=== PATIENT | female | born 1995 | race African-American/Black ===

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

== ENCOUNTER 2017-01-06 14:28 | Inpatient (IN) | payer MEDICAID ==
[~2017-01-06] VITALS: Ht 165.1 cm; Wt 120.0 kg
[~2017-01-06 14:28] MED LIST changes: -ACETAMINOPHEN 1000 MG/100 ML VIAL IV ONE; -BUPIVACAINE/EPINEPHRINE 0.5% PF 30 ML VIAL ONE; -LACTATED RINGER'S 1000 ML INJ 1,000 ML ONE; -LIDOCAINE 1%/EPINEPHrine 1:100,000 SOLN 20 ML VIAL ONE; -MIDAZOLAM HCL 2 MG/2 ML VIAL ONE; -ONDANSETRON HCL 4 MG/2 ML VIAL IV PUSH ONE; -PROPOFOL 200 MG/20 ML AMP IV ONE; -ceFAZolin INJ 1,000 MG VIAL ONE
[2017-01-06 14:32] VITALS: BP 136/79; PULSE 100; RESP 13; TEMP 99.3; O2SAT 100
--- NOTE | 2017-01-06 14:50 | PD ---
Physical Exam Time Seen by Provider: 14:48 Narrative 21-year-old female complaining of sore throat and swollen tonsils for one week. Reports fever but does not have a MAXIMUM TEMPERATURE report. Denies nausea, vomiting. Patient seen in triage. VS reviewed. Awaiting bed placement. Data Data Last Documented VS Vital Signs Date Time Temp Pulse Resp B/P (MAP) Pulse Ox O2 Delivery O2 Flow Rate FiO2 01/06/17 14:32 99.3 100 13 136/79 (98) 100 MDM Supervised Visit with LORETTA: Kyra Munguia Jan 06, 2017 14:50
[2017-01-06] MEDS ORDERED: AMPICILLIN-SULBACTAM INJ 3 GM in SODIUM CHLORIDE 0.9% INJ 100 ML IV ONE (15:00)
[2017-01-06] MEDS ORDERED: DEXAMETHASONE SOD PHOS 20 MG/5 ML VIAL IV PUSH ONE (15:00)
[2017-01-06] MEDS ORDERED: SODIUM CHLORIDE 0.9% FLUSH 10 ML FLUSH IV FLUSH PRN ×2 (15:00→17:30)
--- NOTE | 2017-01-06 15:03 | PD ---
HPI Chief Complaint: ENT Complaint Time Seen by Provider: 14:59 Travel History International Travel<30 days: No Contact w/Intl Traveler<30days: No Traveled to known affect area: No History of Present Illness HPI Patient comes in complaining of worsening tonsil swelling and sore throat. Patient states she saw her primary care doctor 8 days ago and was started on Augmentin which she has been taking as prescribed. Patient states symptoms are not getting any better, but are getting worse. Pain is worse with swallowing. Patient reports when she awoke this morning she had a muffled voice and increased difficulty swallowing. Patient denies any airway compromise at this time. Patient denies any chest pain, shortness of breath, nausea, vomiting, abdominal pain, or . Patient patient reports something similar in the past that resolved after seeing 2 shots of unknown medications. Patient states that they wanted drain it previously but she refused at that time. [facility] Past Medical History Medical History: Denies Significant Hx Diabetes: Yes Social History Alcohol Use: No Tobacco Use: No Substance Use: No Allergies-Medications (Allergen,Severity, Reaction): Coded Allergies: No Known Allergies (Unverified , 07/12/16) Reported Meds & Prescriptions Reported Meds & Active Scripts Active Reported Amoxicillin-Clavulanate 500-125 mg Tab 500 Mg PO BID Review of Systems Except as stated in HPI: all other systems reviewed are Neg Physical Exam Narrative GENERAL: Well-developed, overly nourished, in no acute distress, and non-ill appearing. SKIN: Focused skin assessment warm and dry. HEAD: Atraumatic. Normocephalic. EYES: Pupils equal and round. EOMI. No scleral icterus. No injection or drainage. ENT: No nasal bleeding or discharge. Mucous membranes pink and moist. Left peritonsillar abscess noted. Uvula is deviated to the right. Patient is speaking with a muffled voice, but is able to swallow her own saliva currently. Speaking in full sentences. NECK: Trachea midline. Supple. No nuclear rigidity. RESPIRATORY: No accessory muscle use. No respiratory distress. MUSCULOSKELETAL: No obvious deformities. No clubbing. No cyanosis. No edema. Full range of motion. NEUROLOGICAL: Awake and alert. No obvious cranial nerve deficits. Motor grossly within normal limits. Normal speech. PSYCHIATRIC: Appropriate mood and affect; insight and judgment normal. Data Data Last Documented VS Vital Signs Date Time Temp Pulse Resp B/P (MAP) Pulse Ox O2 Delivery O2 Flow Rate FiO2 01/06/17 15:13 101 24 140/83 (102) 100 Room Air 01/06/17 14:32 99.3 Orders Orders Basic Metabolic Panel (Bmp) (01/06/17 14:54) Complete Blood Count With Diff (01/06/17 14:54) Iv Access Insert/Monitor (01/06/17 14:54) Ecg Monitoring (01/06/17 14:54) Oximetry (01/06/17 14:54) Ampicillin-Sulbactam Inj (Unasyn Inj) (01/06/17 15:00) Sodium Chloride 0.9% Flush (Ns Flush) (01/06/17 15:00) Ct Soft Tiss Neck W Iv Cont (01/06/17 ) Dexamethasone Inj (Decadron Inj) (01/06/17 15:00) Sodium Chlor 0.9% 1000 Ml Inj (Ns 1000 M (01/06/17 15:15) MDM Medical Decision Making Medical Screen Exam Complete: Yes Emergency Medical Condition: Yes Differential Diagnosis Peritonsillar abscess, retropharyngeal abscess, pharyngitis, failed outpatient therapy, electrolyte abnormality, other Narrative Course Patient was seen and exam. Initial laboratory and radiological studies were ordered. IV Unasyn, Decadron, and normal saline were ordered. Patient awaiting medical bed for further treatment will be transferred once one is available. Patient was signed out to Nimo Maurer PA-C. Please see her documentation for final diagnosis and disposition. Angelo Rinaldi Jan 06, 2017 15:03
[2017-01-06] MEDS ORDERED: AMOX500T2 PO (15:12)
[2017-01-06 15:13] VITALS: BP 140/83; PULSE 101; RESP 24; O2SAT 100
[2017-01-06] MEDS ORDERED: SODIUM CHLOR 0.9% 1000 ML INJ 1,000 ML IV ONE (15:15)
--- NOTE | 2017-01-06 15:24 | PD ---
Physical Exam Date Seen by Provider: Jan 06, 2017 Time Seen by Provider: 15:21 Data Data Last Documented VS Vital Signs Date Time Temp Pulse Resp B/P (MAP) Pulse Ox O2 Delivery O2 Flow Rate FiO2 01/06/17 15:13 101 24 140/83 (102) 100 Room Air 01/06/17 14:32 99.3 Orders Orders Basic Metabolic Panel (Bmp) (01/06/17 14:54) Complete Blood Count With Diff (01/06/17 14:54) Iv Access Insert/Monitor (01/06/17 14:54) Ecg Monitoring (01/06/17 14:54) Oximetry (01/06/17 14:54) Ampicillin-Sulbactam Inj (Unasyn Inj) (01/06/17 15:00) Sodium Chloride 0.9% Flush (Ns Flush) (01/06/17 15:00) Ct Soft Tiss Neck W Iv Cont (01/06/17 ) Dexamethasone Inj (Decadron Inj) (01/06/17 15:00) Sodium Chlor 0.9% 1000 Ml Inj (Ns 1000 M (01/06/17 15:15) Iohexol 350 Inj (Omnipaque 350 Inj) (01/06/17 15:48) Consult Ent (01/06/17 ) Admit Order (Ed Use Only) (01/06/17 16:33) Labs Laboratory Tests Test 01/06/17 15:21 White Blood Count 10.1 TH/MM3 Red Blood Count 5.55 MIL/MM3 Hemoglobin 12.3 GM/DL Hematocrit 39.6 % Mean Corpuscular Volume 71.5 FL Mean Corpuscular Hemoglobin 22.1 PG Mean Corpuscular Hemoglobin Concent 31.0 % Red Cell Distribution Width 15.3 % Platelet Count 316 TH/MM3 Mean Platelet Volume 8.0 FL Neutrophils (%) (Auto) 70.6 % Lymphocytes (%) (Auto) 20.4 % Monocytes (%) (Auto) 6.9 % Eosinophils (%) (Auto) 1.5 % Basophils (%) (Auto) 0.6 % Neutrophils # (Auto) 7.1 TH/MM3 Lymphocytes # (Auto) 2.0 TH/MM3 Monocytes # (Auto) 0.7 TH/MM3 Eosinophils # (Auto) 0.2 TH/MM3 Basophils # (Auto) 0.1 TH/MM3 CBC Comment DIFF FINAL Differential Comment Blood Urea Nitrogen 5 MG/DL Creatinine 0.73 MG/DL Random Glucose 81 MG/DL Calcium Level 8.9 MG/DL Sodium Level 138 MEQ/L Potassium Level 3.8 MEQ/L Chloride Level 105 MEQ/L Carbon Dioxide Level 28.5 MEQ/L Anion Gap 5 MEQ/L Estimat Glomerular Filtration Rate 124 ML/MIN [facility] Supervised Visit with LORETTA: No Differential Diagnosis Pharyngitis versus strep pharyngitis versus peritonsillar abscess versus deep neck space infection versus other Narrative Course 21-year-old female presents to the ED for evaluation of throat pain. She was initially seen by Earl Rinaldi PA-C. Please see his note for these details. She was transferred to the medical pod with lab work and CT pending. Patient endorses a day history of sore throat. She saw her primary care and was prescribed clindamycin endorses compliance. She states that her symptoms have been getting worse, including difficulty swallowing. She states that today she woke up with a muffled voice which caused her to seek treatment. She endorses a similar episode in the past, states that she "had a few injections." The patient states that she last had something to drink last night. GENERAL: Well-nourished, well-developed black female in no acute distress. SKIN: Warm and dry. HEAD: Normocephalic. Atraumatic. EYES: No scleral icterus. No injection or drainage. PERRLA. EOMI. ENT: Pearly lopez tympanic membranes bilaterally. Nasal mucosa is moist. Oropharynx without erythematous, edematous, visible exudates. Huge mass in the left tonsillar fossa. Uvula is deviated to the right. Airway patent. NECK: Supple, trachea midline. No JVD or lymphadenopathy. CARDIOVASCULAR: Regular rate and rhythm without murmurs, gallops, or rubs. RESPIRATORY: Breath sounds clear and equal bilaterally. No accessory muscle use. GASTROINTESTINAL: Abdomen soft, non-tender, nondistended. + Bowel sounds MUSCULOSKELETAL: No cyanosis, or edema. BACK: Nontender without obvious deformity. No CVA tenderness. Afebrile on presentation. Labwork reveals no leukocytosis. Patient was administered IV Unasyn, steroids and [address] reveals extensive soft tissue swelling to the level of glossotonsillar sulcus on the left as well as a 2.5 x 1.8 cm left tonsillar abscess per radiology read. I discussed the results of the CT and workup with the patient is agreeable to admission. I spoke with Dr. Rodas who requested the patient be admitted to medicine. He' ll evaluate tomorrow for potential surgical intervention. I spoke with Dr. Mcadams who agrees to accept the patient to the medicine service. Please see medicine and ENT notes for disposition. Nimo Maurer Jan 06, 2017 15:24
[2017-01-06 15:36] LABS: AUTOMATED NEUTROPHIL # 7.1 TH/MM3 (1.8-7.7); BASOPHIL # 0.1 TH/MM3 (0-0.2); BASOPHIL % 0.6 % (0.0-2.0); EOSINOPHIL # 0.2 TH/MM3 (0-0.4); EOSINOPHIL % 1.5 % (0.0-4.0); HEMATOCRIT 39.6 % (35.0-46.0); HEMO FLAGS DIFF FINAL; LYMPH % 20.4 % (9.0-44.0); MEAN CELL VOLUME 71.5 FL (80.0-100.0); MEAN CORPUSCULAR HEMOGLOBIN 22.1 PG (27.0-34.0); MONO % 6.9 % (0.0-8.0); NEUT % 70.6 % (16.0-70.0); PLATELET COUNT 316 TH/MM3 (150-450); RED BLOOD COUNT 5.55 MIL/MM3 (4.00-5.30); RED CELL DISTRIBUTION WIDTH 15.3 % (11.6-17.2); WHITE BLOOD COUNT 10.1 TH/MM3 (4.0-11.0)
[2017-01-06] MEDS ORDERED: IOHEXOL 350 MG/ML 10 ML VIAL (for RAD DIAG) IV PUSH ONE (15:48)
[2017-01-06 15:58] LABS: BICARBONATE 28.5 MEQ/L (21.0-32.0); POTASSIUM 3.8 MEQ/L (3.5-5.1)
--- NOTE | 2017-01-06 16:01 | RADRPT ---
EXAM DATE/TIME: 01/06/2017 15:43 [facility] COMPARISON: No previous studies available for comparison. INDICATIONS : Sore throat for one week. IV CONTRAST: 95 cc Omnipaque 350 (iohexol) IV RADIATION DOSE: 30.75 CTDIvol (mGy) MEDICAL HISTORY : Diabetes mellitus type 2. SURGICAL HISTORY : None. ENCOUNTER: Initial ACUITY: 1 day PAIN SCALE: 4/10 LOCATION: Bilateral neck TECHNIQUE: Volumetric scanning of the neck was performed. Using automated exposure control and adjustment of th e mA and/or kV according to patient size, radiation dose was kept as low as reasonably achievable to obtain optimal diagnostic quality images. DICOM format image data is available electronically for r eview and comparison. FINDINGS: The examination demonstrates extensive soft tissue swelling involving the tonsillar pillar on the lef t and extending down into the left glossotonsillar sulcus. There is central low attenuation measuring 2.5 x 1.8 cm. This would be concerning for a tonsillar abscess. The soft tissues of the nasopharynx are intact. The soft tissues of the larynx are intact. There some scattered jugular and posterior cervical lymph nodes. No necrotic or enhancing nodes are i dentified. The parotid and submandibular glands are intact. The thyroid is normal in appearance. The limited portions of brain parenchyma visualized are unremarkable. The bony structures are intact. CONCLUSION: 1. Extensive soft tissue swelling involving the tonsillar pillar along the left side of the oropharyn x with extension down into the glossotonsillar sulcus on the left. There is central low attenuation m easuring at least 2.5 x 1.8 cm. The findings are concerning for a sizable tonsillar abscess on the le ft. Meir Mills MD on January 06, 2017 at 15:56 Board Certified Radiologist. This report was verified electronically.
[2017-01-06 17:30] VITALS: BP 135/70; PULSE 90; RESP 16; O2SAT 100
[2017-01-06] MEDS ORDERED: MORPHINE SULFATE 4 MG/ML INJ IV PRN ×2 (17:30)
[2017-01-06] MEDS ORDERED: ONDANSETRON HCL 4 MG/2 ML VIAL IVP PRN (17:30)
[2017-01-06] MEDS ORDERED: ACETAMINOPHEN/HYDROcodone 325 MG/5 MG TAB PO PRN (17:30)
[2017-01-06] MEDS ORDERED: ACETAMINOPHEN 325 MG TAB PO PRN (17:30)
[2017-01-06] MEDS ORDERED: ACETAMINOPHEN/HYDROcodone 325 MG/7.5 MG TAB PO PRN (17:30)
[2017-01-06] MEDS ORDERED: NALOXONE HCL 0.4 MG/ML AMP IV PUSH PRN (17:30)
--- NOTE | 2017-01-06 17:39 | HHI.HP ---
[facility] Service [facility] Primary Care Physician No Primary Care Physician Admission Diagnosis left peritonsillar abscess Diagnoses: Chief Complaint: Sore throat, difficulty swallowing, fever Travel History International Travel<30 Days: No Contact w/Intl Traveler <30 Da: No Traveled to Known Affected Are: No History of Present Illness 21 years old female with history of tonsillitis came today with worsening tonsil swelling, sore throat, difficulty swallowing, subjective fever, positive exudate which was getting worse since Monday. Patient reports some cough, muffled voice. Airway still needs and no difficulty breathing, no chest pain short of breath, no nausea vomiting abdominal pain diarrhea constipation. Patient had that before and she was given 2 shots of unknown medication. In ED patient had a CT of the neck which showed peritonsillar extensive abscess, ENT consulted he will be seeing the patient for possible I&D Review of Systems All systems reviewed and was positive for what is mentioned in history of present illness otherwise negative Past Family Social History Past Medical History patient denied any other medical problem Past Surgical History no previous surgery Allergies: Coded Allergies: No Known Allergies (Unverified , 07/12/16) Family History Review with the patient,not aware of significant medical history runs in his family Social History Denied tobacco alcohol or illicit drug abuse Physical Exam Vital Signs Vital Signs Date Time Temp Pulse Resp B/P (MAP) Pulse Ox O2 Delivery O2 Flow Rate FiO2 01/06/17 15:13 101 24 140/83 (102) 100 Room Air 01/06/17 14:32 99.3 100 13 136/79 (98) 100 Physical Exam - GENERAL: This is a well-nourished, well-developed patient, in no apparent distress. SKIN: No rashes, warm and dry HEAD: Atraumatic. Normocephalic. EYES: Pupils equal round and reactive. Extraocular motions intact. No scleral icterus. ENT: Nose without bleeding, or drainage, Airway patent. Positive exudate seen on the right tonsil, positive tender lymph node submandibular more on the left NECK: Trachea midline. Supple CARDIOVASCULAR: Regular rate and rhythm without murmurs, gallops, or rubs. RESPIRATORY: Fair air entry bilaterally. No wheezes, rales, or rhonchi. GASTROINTESTINAL: Abdomen soft, non-tender, nondistended. Positive bowel sounds MUSCULOSKELETAL: Extremities without clubbing, cyanosis, or edema. Pedal pulses appreciated NEUROLOGICAL: Awake and alert. Moves all extremity. Normal speech.no focal neurological deficit Laboratory Laboratory Tests Test 01/06/17 15:21 White Blood Count 10.1 Red Blood Count 5.55 Hemoglobin 12.3 Hematocrit 39.6 Mean Corpuscular Volume 71.5 Mean Corpuscular Hemoglobin 22.1 Mean Corpuscular Hemoglobin Concent 31.0 Red Cell Distribution Width 15.3 Platelet Count 316 Mean Platelet Volume 8.0 Neutrophils (%) (Auto) 70.6 Lymphocytes (%) (Auto) 20.4 Monocytes (%) (Auto) 6.9 Eosinophils (%) (Auto) 1.5 Basophils (%) (Auto) 0.6 Neutrophils # (Auto) 7.1 Lymphocytes # (Auto) 2.0 Monocytes # (Auto) 0.7 Eosinophils # (Auto) 0.2 Basophils # (Auto) 0.1 CBC Comment DIFF FINAL Differential Comment Blood Urea Nitrogen 5 Creatinine 0.73 Random Glucose 81 Calcium Level 8.9 Sodium Level 138 Potassium Level 3.8 Chloride Level 105 Carbon Dioxide Level 28.5 Anion Gap 5 Estimat Glomerular Filtration Rate 124 Result Diagram: 01/06/17 1521 01/06/17 1521 Imaging Last Impressions Neck CT 01/06/17 0000 Signed Impressions: Service Date/Time: Friday, January 06, 2017 15:43 - CONCLUSION: 1. Extensive soft tissue swelling involving the tonsillar pillar along the left side of the oropharynx with extension down into the glossotonsillar sulcus on the left. There is central low attenuation measuring at least 2.5 x 1.8 cm. The findings are concerning for a sizable tonsillar abscess on the left. Meir Mills MD Caprini VTE Risk Assessment Caprini VTE Risk Assessment: No/Low Risk (score <= 1) Caprini Risk Assessment Model Point Value = 1 Point Value = 2 Point Value = 3 Point Value = 5 Age 41-60 Minor surgery BMI > 25 kg/m2 Swollen legs Varicose veins or History of unexplained or recurrent spontaneous Oral contraceptives or hormone replacement Sepsis (< 1 month) Serious lung disease, including pneumonia (< 1 month) Abnormal pulmonary function Acute myocardial infarction Congestive heart failure (< 1 month) History of inflammatory bowel disease Medical patient at bed rest Age 61-74 Arthroscopic surgery Major open surgery (> 45 min) Laparoscopic surgery (> 45 min) Malignancy Confined to bed (> 72 hours) Immobilizing plaster cast Central venous access Age >= 75 History of VTE Family history of VTE Factor V Leiden Prothrombin [id number] Lupus anticoagulant Anticardiolipin antibodies Elevated serum homocysteine Heparin-induced thrombocytopenia Other congenital or acquired thrombophilia Stroke (< 1 month) Elective arthroplasty Hip, pelvis, or leg fracture Acute spinal cord injury (< 1 month) Prophylaxis Regimen Total Risk Factor Score Risk Level Prophylaxis Regimen 0-1 Low Early ambulation 2 Moderate Order ONE of the following: *Sequential Compression Device (SCD) *Heparin 5000 units SQ BID 3-4 Higher Order ONE of the following medications: *Heparin 5000 units SQ TID *Enoxaparin/Lovenox 40 mg SQ daily (WT < 150 kg, CrCl > 30 mL/min) *Enoxaparin/Lovenox 30 mg SQ daily (WT < 150 kg, CrCl > 10-29 mL/min) *Enoxaparin/Lovenox 30 mg SQ BID (WT < 150 kg, CrCl > 30 mL/min) AND/OR *Sequential Compression Device (SCD) 5 or more Highest Order ONE of the following medications: *Heparin 5000 units SQ TID (Preferred with Epidurals) *Enoxaparin/Lovenox 40 mg SQ daily (WT < 150 kg, CrCl > 30 mL/min) *Enoxaparin/Lovenox 30 mg SQ daily (WT < 150 kg, CrCl > 10-29 mL/min) *Enoxaparin/Lovenox 30 mg SQ BID (WT < 150 kg, CrCl > 30 mL/min) AND *Sequential Compression Device (SCD) Assessment and Plan Assessment and Plan 21 years old female came with Peritonsillar extensive abscess Increased neutrophilia without leukocytosis Hyperchromic microcytosis with normal hemoglobin? Underlying thalassemia> follow as an outpatient Plan: Start Unasyn iv Dexamethasone 90 Monitor airway patency Consult ENT Ambulate for DVT prophylaxis Discussed Condition With patient and ED physician Physician Certification 2 Midnight Certification Type: Admission for Inpatient Services Order for Inpatient Services The services are ordered in accordance with Medicare regulations or non- Medicare payer requirements, as applicable. In the case of services not specified as inpatient-only, they are appropriately provided as inpatient services in accordance with the 2-midnight benchmark. Estimated LOS (days): 2 days is the estimated time the patient will need to remain in the hospital, assuming treatment plan goals are met and no additional complications. Post-Hospital Plan: Home Rebecca Mcadams MD Jan 06, 2017 17:39
--- NOTE | 2017-01-06 18:02 | PD ---
Data Data Last Documented VS Vital Signs Date Time Temp Pulse Resp B/P (MAP) Pulse Ox O2 Delivery O2 Flow Rate FiO2 01/06/17 15:13 101 24 140/83 (102) 100 Room Air 01/06/17 14:32 99.3 Orders Orders Basic Metabolic Panel (Bmp) (01/06/17 14:54) Complete Blood Count With Diff (01/06/17 14:54) Iv Access Insert/Monitor (01/06/17 14:54) Ecg Monitoring (01/06/17 14:54) Oximetry (01/06/17 14:54) Ampicillin-Sulbactam Inj (Unasyn Inj) (01/06/17 15:00) Sodium Chloride 0.9% Flush (Ns Flush) (01/06/17 15:00) Ct Soft Tiss Neck W Iv Cont (01/06/17 ) Dexamethasone Inj (Decadron Inj) (01/06/17 15:00) Sodium Chlor 0.9% 1000 Ml Inj (Ns 1000 M (01/06/17 15:15) Iohexol 350 Inj (Omnipaque 350 Inj) (01/06/17 15:48) Consult Ent (01/06/17 ) Admit Order (Ed Use Only) (01/06/17 16:33) Labs Laboratory Tests Test 01/06/17 15:21 White Blood Count 10.1 TH/MM3 Red Blood Count 5.55 MIL/MM3 Hemoglobin 12.3 GM/DL Hematocrit 39.6 % Mean Corpuscular Volume 71.5 FL Mean Corpuscular Hemoglobin 22.1 PG Mean Corpuscular Hemoglobin Concent 31.0 % Red Cell Distribution Width 15.3 % Platelet Count 316 TH/MM3 Mean Platelet Volume 8.0 FL Neutrophils (%) (Auto) 70.6 % Lymphocytes (%) (Auto) 20.4 % Monocytes (%) (Auto) 6.9 % Eosinophils (%) (Auto) 1.5 % Basophils (%) (Auto) 0.6 % Neutrophils # (Auto) 7.1 TH/MM3 Lymphocytes # (Auto) 2.0 TH/MM3 Monocytes # (Auto) 0.7 TH/MM3 Eosinophils # (Auto) 0.2 TH/MM3 Basophils # (Auto) 0.1 TH/MM3 CBC Comment DIFF FINAL Differential Comment Blood Urea Nitrogen 5 MG/DL Creatinine 0.73 MG/DL Random Glucose 81 MG/DL Calcium Level 8.9 MG/DL Sodium Level 138 MEQ/L Potassium Level 3.8 MEQ/L Chloride Level 105 MEQ/L Carbon Dioxide Level 28.5 MEQ/L Anion Gap 5 MEQ/L Estimat Glomerular Filtration Rate 124 ML/MIN MDM Supervised Visit with LORETTA: Yes Narrative Course The history, exam, and medical decision-making in the associated midlevel provider note were completed with my assistance. I reviewed and agree with the findings presented. I attest that I had a [id number] encounter with the patient on the same day, and personally performed and documented my assessment and findings in the medical record. *My assessment and Findings: This is a 21-year-old female who presents to the emergency department with sore throat. On physical exam she has evidence of a left-sided peritonsillar abscess. CT confirms this. Patient will be admitted on IV antibiotics and steroids and ENT will be consulted for possible incision and drainage. Lenora Galeas MD Jan 06, 2017 18:02
[2017-01-06 20:00] VITALS: BP 131/72; PULSE 83; RESP 22; TEMP 98.7; O2SAT 96
[2017-01-06] MEDS: SODIUM CHLOR 0.9% 1000 ML INJ 1,000 ML IV SCH (20:17)
[2017-01-06] MEDS: AMPICILLIN-SULBACTAM INJ 3 GM in SODIUM CHLORIDE 0.9% INJ 100 ML IV SCH (20:18)
[2017-01-06] MEDS: SODIUM CHLORIDE 0.9% FLUSH 10 ML FLUSH IV FLUSH SCH (20:18)
[2017-01-06 20:53] VITALS: PULSE 67
[2017-01-06] MEDS ORDERED: DEXAMETHASONE SOD PHOS 4 MG/ML VIAL IV PUSH SCH (21:00)
[2017-01-07] VITALS (7 sets, daily range): BP systolic 114–142; BP diastolic 61–89; PULSE 63–96; RESP 16–20; TEMP 97.6–98; O2SAT 97–100
[2017-01-07] MEDS: DEXAMETHASONE SOD PHOS 4 MG/ML VIAL IV PUSH SCH ×4 (02:16→19:43)
[2017-01-07] MEDS: SODIUM CHLOR 0.9% 1000 ML INJ 1,000 ML IV SCH ×3 (02:16→19:42)
[2017-01-07] MEDS: AMPICILLIN-SULBACTAM INJ 3 GM in SODIUM CHLORIDE 0.9% INJ 100 ML IV SCH ×4 (02:16→19:44)
[2017-01-07 07:36] LABS: BASOPHIL % 0.2 % (0.0-2.0); HEMATOCRIT 39.7 % (35.0-46.0); HEMO FLAGS DIFF FINAL; LYMPH % 7.7 % (9.0-44.0); MEAN CELL VOLUME 71.5 FL (80.0-100.0); MEAN CORPUSCULAR HEMOGLOBIN 22.8 PG (27.0-34.0); MEAN CORPUSCULAR HGB CONC 31.8 % (32.0-36.0); MONO % 1.2 % (0.0-8.0); NEUT % 90.9 % (16.0-70.0); PLATELET COUNT 365 TH/MM3 (150-450); RED BLOOD COUNT 5.56 MIL/MM3 (4.00-5.30); RED CELL DISTRIBUTION WIDTH 15.4 % (11.6-17.2); WHITE BLOOD COUNT 13.2 TH/MM3 (4.0-11.0)
[2017-01-07 07:55] LABS: BICARBONATE 24.5 MEQ/L (21.0-32.0); POTASSIUM 4.1 MEQ/L (3.5-5.1)
[2017-01-07] MEDS: SODIUM CHLORIDE 0.9% FLUSH 10 ML FLUSH IV FLUSH SCH ×2 (09:00→19:43)
--- NOTE | 2017-01-07 12:40 | HHI.PR ---
Subjective Remarks Patient stated she feels better in her throat, now she is able to swallow No fever overnight, awaiting ENT to see patient Objective Vitals Vital Signs Date Time Temp Pulse Resp B/P (MAP) Pulse Ox O2 Delivery O2 Flow Rate FiO2 01/07/17 12:03 97.8 88 19 139/89 (106) 100 01/07/17 08:43 97.8 91 19 136/84 (101) 100 01/07/17 04:00 97.6 94 20 138/88 (105) 100 01/07/17 00:00 98.0 96 20 114/61 (78) 97 01/06/17 20:53 67 01/06/17 20:00 98.7 83 22 131/72 (91) 96 01/06/17 17:44 01/06/17 17:30 90 16 135/70 (91) 100 Room Air 01/06/17 15:13 101 24 140/83 (102) 100 Room Air 01/06/17 14:32 99.3 100 13 136/79 (98) 100 I/O 01/06/17 01/06/17 01/06/17 01/07/17 01/07/17 01/07/17 07:00 15:00 23:00 07:00 15:00 23:00 Intake Total 100 ml 240 ml Output Total 450 ml 700 ml Balance 100 ml -210 ml -700 ml Intake Oral 240 ml IV Total 100 ml Output Urine Total 450 ml 700 ml # Voids 2 # Bowel Movements 0 Result Diagram: 01/07/17 0636 01/07/17 0626 Objective Remarks - GENERAL: This is a well-nourished, well-developed patient, in no apparent distress. SKIN: No rashes, warm and dry HEAD: Atraumatic. Normocephalic. EYES: Pupils equal round and reactive. Extraocular motions intact. No scleral icterus. ENT: Nose without bleeding, or drainage, Airway patent. Positive exudate seen on the right tonsil, positive tender lymph node submandibular more on the left NECK: Trachea midline. Supple CARDIOVASCULAR: Regular rate and rhythm without murmurs, gallops, or rubs. RESPIRATORY: Fair air entry bilaterally. No wheezes, rales, or rhonchi. GASTROINTESTINAL: Abdomen soft, non-tender, nondistended. Positive bowel sounds MUSCULOSKELETAL: Extremities without clubbing, cyanosis, or edema. Pedal pulses appreciated NEUROLOGICAL: Awake and alert. Moves all extremity. Normal speech.no focal neurological deficit A/P Assessment and Plan 21 years old female came with Peritonsillar extensive abscess Increased neutrophilia without leukocytosis Hyperchromic microcytosis with normal hemoglobin? Underlying thalassemia> follow as an outpatient Plan: Continue Unasyn Dexamethasone iv Monitor airway patency Awaiting ENT consult Ambulate for DVT prophylaxis Addendum; Appreciate ENT consultation, recommended continuing iv Unasyn and dexamethasone until tomorrow then discharged on 14 days of antibiotic and Medrol Dosepak Rebecca Mcadams MD Jan 07, 2017 12:40
[2017-01-07] MEDS ORDERED: AUGM875T3 PO ×2 (12:41→17:31)
--- NOTE | 2017-01-07 15:09 | MB ---
cc: JARED RODAS MD DATE OF CONSULTATION: 01/07/17 CHIEF COMPLAINT Left peritonsillar infection. HISTORY OF PRESENT ILLNESS The patient is a pleasant 21-year-old female with a history of peritonsillar cellulitis and possible abscess in the past numerous times who presents with a left peritonsillar infection. CT confirmed possible abscess. She has rapidly improved over the last 24 hours with IV Unasyn and Decadron. She is currently tolerating p.o. fluids very well and having minimal trismus. She states that she feels markedly better than yesterday and near completely improved. EXAMINATION Examination reveals left peritonsillar cellulitis with left greater than right erythematous exudative tonsil but minimal fullness of the left peritonsillar region and the soft palate. Flexible fiberoptic laryngoscopy revealed widely open airway minus the asymmetry from the larger left tonsil. Vocal cords were normal. The patient also was noted to have mild cervical adenopathy on the left side greater than right which the patient said was much worse yesterday. ASSESSMENT Left peritonsillar infection, improving rapidly. Discussed with the patient recommend the patient continue receiving IV antibiotics and steroids until tomorrow. The patient to continue the course. Recommend patient be discharged home after her 3 o'clock p.m. antibiotics and steroids. Recommend the patient continue with two weeks of oral antibiotics as well as being discharged on a Medrol Dosepak as well. Recommend the patient to followup with me sometime later this week in our [place] location, which the patient stated that she would be able to do. Discussed the patient should not have anything scratchy to eat or anything too hot over the next few days as the healing continues. The patient is to contact us earlier as needed. Mom and patient understand and agree with the above. Also discussed the patient will likely need to have her tonsils taken out in the future when she stabilizes. Of note, her last infection was spring break roughly six months ago so we discussed the possibility of taking her tonsils out sometime around [place] or at another time if convenient for her. She goes to school here at [facility] although the family lives three [place] south and they say that [place] may be a good time period for that. We also discussed measures to minimize infections in the future to include hydration, nasal sinus rinse, adequate nutrition as well. The patient understands the above and will follow instructions. Jared Rodas MD CCP/BJLucero /2:15 PM /2:32 PM
[2017-01-07] MEDS ORDERED: MEDR4PAK PO (17:33)
[2017-01-08] VITALS (7 sets, daily range): BP systolic 121–142; BP diastolic 67–80; PULSE 48–79; RESP 17–20; TEMP 96.4–97.9; O2SAT 97–100
[2017-01-08] MEDS: DEXAMETHASONE SOD PHOS 4 MG/ML VIAL IV PUSH SCH ×4 (01:53→20:01)
[2017-01-08] MEDS: AMPICILLIN-SULBACTAM INJ 3 GM in SODIUM CHLORIDE 0.9% INJ 100 ML IV SCH ×4 (01:53→20:01)
[2017-01-08] MEDS: SODIUM CHLORIDE 0.9% FLUSH 10 ML FLUSH IV FLUSH SCH ×2 (08:24→20:00)
[2017-01-08] MEDS: SODIUM CHLOR 0.9% 1000 ML INJ 1,000 ML IV SCH (10:13)
[2017-01-08 10:53] LABS: HEMATOCRIT 35.3 % (35.0-46.0); MEAN CELL VOLUME 71.3 FL (80.0-100.0); MEAN CORPUSCULAR HEMOGLOBIN 23.8 PG (27.0-34.0); MEAN CORPUSCULAR HGB CONC 33.4 % (32.0-36.0); PLATELET COUNT 332 TH/MM3 (150-450); RED BLOOD COUNT 4.95 MIL/MM3 (4.00-5.30); RED CELL DISTRIBUTION WIDTH 15.4 % (11.6-17.2); WHITE BLOOD COUNT 25.5 TH/MM3 (4.0-11.0)
[2017-01-08 10:56] LABS: HEMO FLAGS AUTO DIFF
[2017-01-08 11:33] LABS: BANDS 2 % (0-6); NEUTROPHIL # MANUAL DIFF 24.7 TH/MM3 (1.8-7.7); PLATELET ESTIMATE SMEAR NORMAL (NORMAL); PLATELET MORPHOLOGY NORMAL (NORMAL); POLYS (SEG NEUTROPHILS) 95 % (16-70); SCAN/DIFF FINAL DIFF MANUAL; WBC DIFF SAMPLE 100
--- NOTE | 2017-01-08 13:50 | HHI.PR ---
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 , able to swollow cleared by ENT to be dc on po abx and taper prednisone Objective Vitals Vital Signs Date Time Temp Pulse Resp B/P (MAP) Pulse Ox O2 Delivery O2 Flow Rate FiO2 01/08/17 12:55 96.4 56 19 142/80 (100) 100 01/08/17 08:48 97.6 60 20 125/76 (92) 100 01/08/17 04:00 96.7 69 17 136/71 (92) 100 01/08/17 00:00 97.0 61 17 121/78 (92) 97 01/07/17 20:28 71 01/07/17 20:00 97.7 63 17 126/83 (97) 97 01/07/17 15:50 98.0 66 16 142/89 (106) 98 I/O 01/07/17 01/07/17 01/07/17 01/08/17 01/08/17 01/08/17 07:00 15:00 23:00 07:00 15:00 23:00 Intake Total 240 ml 100 ml 100 ml 240 ml Output Total 450 ml 700 ml Balance -210 ml -600 ml 100 ml 240 ml Intake Oral 240 ml 240 ml IV Total 100 ml 100 ml Output Urine Total 450 ml 700 ml # Voids 2 2 # Bowel Movements 0 Result Diagram: 01/08/17 1037 01/07/17 0626 Objective Remarks - GENERAL: This is a well-nourished, well-developed patient, in no apparent distress. SKIN: No rashes, warm and dry HEAD: Atraumatic. Normocephalic. EYES: Pupils equal round and reactive. Extraocular motions intact. No scleral icterus. ENT: Nose without bleeding, or drainage, Airway patent. Positive exudate seen on the right tonsil, positive tender lymph node submandibular more on the left NECK: Trachea midline. Supple CARDIOVASCULAR: Regular rate and rhythm without murmurs, gallops, or rubs. RESPIRATORY: Fair air entry bilaterally. No wheezes, rales, or rhonchi. GASTROINTESTINAL: Abdomen soft, non-tender, nondistended. Positive bowel sounds MUSCULOSKELETAL: Extremities without clubbing, cyanosis, or edema. Pedal pulses appreciated NEUROLOGICAL: Awake and alert. Moves all extremity. Normal speech.no focal neurological deficit A/P Assessment and Plan 21 years old female came with Peritonsillar extensive abscess symptomatic Aflutter sinus arrythmia >>check 2decho , consult cardiology Increased neutrophilia without leukocytosis Hyperchromic microcytosis with normal hemoglobin? Underlying thalassemia> follow as an outpatient Plan: Continue Unasyn while in hospital switch to augmentin at dc hold dc today due to arrythmia >EKG reviewed by me personally as well as the strips >>sinus anya with sinus arrythmia ?sick sinus >>2decho , consult cardio Dexamethasone iv Monitor airway patency appreciate ENT consult>> need outpt ff for possible tonsillectomy Ambulate for DVT prophylaxis Addendum; Appreciate ENT consultation, recommended continuing iv Unasyn and dexamethasone until tomorrow then discharged on 14 days of antibiotic and Medrol Dosemarshak Rebecca Mcadams MD Jan 08, 2017 13:50
--- NOTE | 2017-01-08 14:03 | EKG ---
Date Performed: 01/08/2017 Time Performed: 10:17:22 PTAGE: 21 years EKG: SINUS BRADYCARDIA WITH SINUS ARRHYTHMIA BORDERLINE ECG NO PREVIOUS TRACING DOCTOR: Carlos Caberra Interpretating Date/Time 01/08/2017 14:02:39
--- NOTE | 2017-01-08 15:05 | MB ---
cc: JESSICA KANG MD DATE OF CONSULTATION: 01/08/2017. REASON FOR CONSULTATION: Questionable arrhythmia. HISTORY OF PRESENT ILLNESS: The patient is a very pleasant 21-year-old woman with no prior cardiac history who was admitted for strep throat symptoms and while she was here she was placed on telemetry which at times was questionable for atrial fibrillation / flutter. The patient denies any cardiac history such as chest pain, shortness of breath, palpitations, lightheadedness, dizziness or syncope. Telemetry strips were reviewed by myself and I do not see any convincing atrial dysrhythmia. PAST MEDICAL HISTORY: None. CURRENT MEDICATIONS: 1. Augmentin. 2. Decadron. ALLERGIES: NO KNOWN DRUG ALLERGIES. PHYSICAL EXAMINATION: VITAL SIGNS: Afebrile, pulse 56, respiratory 90, blood pressure 142/80, satting 100 on room air. GENERAL: A pleasant obese -[place] woman in no distress. NECK: No jugular venous distention. LUNGS: Clear to auscultation bilaterally. CARDIOVASCULAR: Regular rate and rhythm. No murmurs appreciated. ABDOMEN: Benign. EXTREMITIES: No edema. LABORATORY DATA: White count 22.5, hematocrit 35.3, platelet count 332,000. Sodium 137, potassium 4.1, chloride 104, bicarbonate 24.9, BUN 5, creatinine 0.55, glucose 102. EKG shows sinus rhythm with any acute S-T or T wave changes. Telemetry: I reviewed many strips for the last 24 hours, which were indicated as atrial fibrillation /flutter on telemetry. There seems to be heavy baseline artifact during all of these strips with normal Q-R-S and usually P wave clearly marching through and I do not believe she has truly had any significant atrial fibrillation or atrial flutter. IMPRESSION: Possible dysrhythmia: As stated above, I reviewed at length her telemetry strips. I do not feel convinced she has had any atrial fibrillation or atrial flutter. Her EKG and current telemetry shows sinus rhythm. Also reassuring is that her [id number] score would be 0 given her young age. I cannot be 100% sure she has not had a second or two of an atrial dysrhythmia but again I do not see any significant evidence of this. I will have her undergo a 24-hour Holter monitor, and I have asked the nursing staff to re-do her telemetry to ensure that her contact of the leads to reduce the baseline artifact that is seen. An echocardiogram has been ordered which is reasonable to ensure a normal left atrial size and no other structural disease. If the above tests are normal, I would not pursue any further workup. Thank you again for the opportunity to participate in this patient's care. I will be available on an as-needed basis but will review these studies. MD NEDA Fabian/ELIZABETH /2:05 PM /2:56 PM
[2017-01-09 00:16] VITALS: BP 128/70; PULSE 51; RESP 18; TEMP 97.5; O2SAT 97
[2017-01-09] MEDS: SODIUM CHLOR 0.9% 1000 ML INJ 1,000 ML IV SCH ×2 (01:35→16:00)
[2017-01-09] MEDS: AMPICILLIN-SULBACTAM INJ 3 GM in SODIUM CHLORIDE 0.9% INJ 100 ML IV SCH ×3 (03:49→15:35)
[2017-01-09] MEDS: DEXAMETHASONE SOD PHOS 4 MG/ML VIAL IV PUSH SCH ×3 (03:50→15:36)
[2017-01-09 04:17] VITALS: BP 147/93; PULSE 50; RESP 18; TEMP 97.6; O2SAT 96
[2017-01-09 07:50] VITALS: PULSE 51
[2017-01-09 08:00] VITALS: BP 139/57; PULSE 50; RESP 17; TEMP 97.4; O2SAT 100
[2017-01-09] MEDS: SODIUM CHLORIDE 0.9% FLUSH 10 ML FLUSH IV FLUSH SCH (09:53)
--- NOTE | 2017-01-09 09:53 | PD.CARD.PN ---
Subjective Subjective Remarks Pt w/o cardiac complains, sinus rhythm/anya on tele (artifact resolved.) Objective Medications Administered Medications Medications (Trade) Dose Ordered Sig/Radha Route PRN Reason Start Time Stop Time Status Last Admin Dose Admin Ampicillin Sodium/ Sulbactam Sodium 3 gm/Sodium Chloride 100 ml @ 200 mls/hr Q6H IV 01/06/17 21:00 01/09/17 03:49 Sodium Chloride 1,000 ml @ 100 mls/hr Q10H IV 01/06/17 18:00 01/09/17 01:35 Acetaminophen/ Hydrocodone Bitart ([place] 5-325 Mg) 1 tab Q4H PRN PO PAIN SCALE 3 TO 5 01/06/17 17:30 01/08/17 11:57 Dexamethasone Sodium Phosphate (Decadron Inj) 6 mg Q6H IV PUSH 01/07/17 03:00 01/09/17 03:50 Vital Signs / I&O Vital Signs Date Time Temp Pulse Resp B/P (MAP) Pulse Ox O2 Delivery O2 Flow Rate FiO2 01/09/17 04:17 97.6 50 18 147/93 (111) 96 01/09/17 00:16 97.5 51 18 128/70 (89) 97 01/08/17 20:58 97.8 79 20 131/70 (90) 98 01/08/17 20:00 48 01/08/17 17:20 97.9 54 20 135/67 (89) 97 01/08/17 12:55 96.4 56 19 142/80 (100) 100 I/O 01/08/17 01/08/17 01/08/17 01/09/17 01/09/17 01/09/17 07:00 15:00 23:00 07:00 15:00 23:00 Intake Total 240 ml 100 ml 2322 ml Output Total 1500 ml Balance 240 ml 100 ml 822 ml Intake Oral 240 ml 780 ml IV Total 100 ml 1542 ml Output Urine Total 1500 ml # Voids 2 # Bowel Movements 0 Physical Exam GENERAL: This is a well-nourished, well-developed patient, in no apparent distress. CARDIOVASCULAR: Regular rate and rhythm without murmurs, gallops, or rubs. RESPIRATORY: Clear to auscultation. Breath sounds equal bilaterally. No wheezes , rales, or rhonchi. GASTROINTESTINAL: Abdomen soft, non-tender, nondistended. Normal active bowel sounds MUSCULOSKELETAL: Extremities without clubbing, cyanosis, or edema. NEURO: Alert & Oriented x4 to person, place, time, situation. Moves all ext x4 Laboratory Laboratory Tests Test 01/08/17 10:37 White Blood Count 25.5 TH/MM3 Red Blood Count 4.95 MIL/MM3 Hemoglobin 11.8 GM/DL Hematocrit 35.3 % Mean Corpuscular Volume 71.3 FL Mean Corpuscular Hemoglobin 23.8 PG Mean Corpuscular Hemoglobin Concent 33.4 % Red Cell Distribution Width 15.4 % Platelet Count 332 TH/MM3 Mean Platelet Volume 8.5 FL CBC Comment AUTO DIFF Differential Total Cells Counted 100 Neutrophils % (Manual) 95 % Band Neutrophils % 2 % Lymphocytes % 2 % Monocytes % 1 % Neutrophils # (Manual) 24.7 TH/MM3 Differential Comment FINAL DIFF MANUAL Platelet Estimate NORMAL Platelet Morphology Comment NORMAL Red Cell Morphology Comment NORMAL Imaging Last Impressions Neck CT 01/06/17 0000 Signed Impressions: Service Date/Time: Friday, January 06, 2017 15:43 - CONCLUSION: 1. Extensive soft tissue swelling involving the tonsillar pillar along the left side of the oropharynx with extension down into the glossotonsillar sulcus on the left. There is central low attenuation measuring at least 2.5 x 1.8 cm. The findings are concerning for a sizable tonsillar abscess on the left. Meir Mills MD Assessment and Plan Problem List: (1) Arrhythmia ICD Codes: I49.9 - Cardiac arrhythmia, unspecified Status: Resolved Plan: As detailed in my note yesterday, I do not believe she has had any true dysrhythmia, but significant artifact seen on tele did look similar to afib/ flutter; Though I can't be 100% certain there wasn't brief afib/flutter during some of the periods of very heavy artifact, I doubt it. I think it is reasonable to proceed w/ echo to ensure normal structure and she can wear a 24h holter (can go home w/ it and bring back.) Assessment and Plan I will sign off at this time, please call with questions (I'll keep an eye out for her echo). Newton Bowden MD Jan 09, 2017 09:53
[2017-01-09 12:00] VITALS: BP 142/77; PULSE 51; RESP 19; TEMP 97.2; O2SAT 97
--- NOTE | 2017-01-09 15:12 | ECHRPT ---
Indication: arrythmia CONCLUSIONS Normal left ventricular size. Wall thickness is normal. The left ventricular systolic function is normal with an estimated ejection fraction in the range of 55-60%. Trace mitral valve regurgitation. Trivial pulmonary valve regurgitation. There is a trivial pericardial effusion present. No hemodynamically significant echocardiographic features were observed (no pre-tamponade physiology). BP: 147 / 93 HR: 79 Rhythm: Sinus MEASUREMENTS (Male / Female) Normal Values Technical Quality:Good 2D ECHO LV Diastolic Diameter PLAX 4.6 cm 4.2 - 5.9 / 3.9 - 5.3 cm LV Systolic Diameter PLAX 3.5 cm IVS Diastolic Thickness 1.0 cm 0.6 - 1.0 / 0.6 - 0.9 cm LVPW Diastolic Thickness 0.8 cm 0.6 - 1.0 / 0.6 - 0.9 cm LV Relative Wall Thickness 0.4 RV Internal Dim ED PLAX 1.9 cm LA Systolic Diameter LX 3.7 cm 3.0 - 4.0 / 2.7 - 3.8 cm M-MODE Aortic Root Diameter MM 2.9 cm AV Cusp Separation MM 2.1 cm DOPPLER AV Peak Velocity 170.0 cm/s AV Peak Gradient 11.6 mmHg LVOT Peak Velocity 147.0 cm/s LVOT Peak Gradient 8.6 mmHg Mitral E Point Velocity 128.0 cm/s Mitral A Point Velocity 62.4 cm/s Mitral E to A Ratio 2.1 LV E' Lateral Velocity 25.2 cm/s Mitral E to LV E' Lateral Ratio 5.1 TR Peak Velocity 143.0 cm/s TR Peak Gradient 8.2 mmHg Right Atrial Pressure 5.0 mmHg Pulmonary Artery Systolic Pressu 13.2 mmHg Right Ventricular Systolic Press 13.2 mmHg FINDINGS LEFT VENTRICLE Normal left ventricular size. Wall thickness is normal. The left ventricular systolic function is normal with an estimated ejection fraction in the range of 55-60%. RIGHT VENTRICLE Normal right ventricular size and systolic function. LEFT ATRIUM The left atrial size is normal. RIGHT ATRIUM The right atrial size is normal. ATRIAL SEPTUM Normal atrial septal thickness without atrial level shunting by limited color doppler interrogation. AORTA The aortic root and proximal ascending aorta are normal in size on limited imaging. MITRAL VALVE Trace mitral valve regurgitation. AORTIC VALVE Trileaflet aortic valve. No aortic valve stenosis or regurgitation. TRICUSPID VALVE Structurally normal tricuspid valve. No tricuspid valve stenosis or regurgitation. PULMONARY VALVE Trivial pulmonary valve regurgitation. VESSELS The inferior vena cava is normal in size. PERICARDIUM There is a trivial pericardial effusion present. No hemodynamically significant echocardiographic features were observed (no pre-tamponade physiology). Esther Rodríguez MD, FACC (Electronically Signed) Final Date:09 January 2017 15:11
--- NOTE | 2017-01-09 15:34 | HHI.DS ---
Discharge Summary Admission Date Jan 06, 2017 at 16:34 Discharge Date: Jan 09, 2017 Admitting Diagnosis left peritonsillar abscess (1) Peritonsillar abscess ICD Code: J36 - Peritonsillar abscess Diagnosis: Principal Procedures none Brief History - From Admission 21 years old female with history of tonsillitis came today with worsening tonsil swelling, sore throat, difficulty swallowing, subjective fever, positive exudate which was getting worse since Monday. Patient reports some cough, muffled voice. Airway still needs and no difficulty breathing, no chest pain short of breath, no nausea vomiting abdominal pain diarrhea constipation. Patient had that before and she was given 2 shots of unknown medication. In ED patient had a CT of the neck which showed peritonsillar extensive abscess, ENT consulted he will be seeing the patient for possible I&D CBC/BMP: 01/08/17 1037 01/07/17 0626 Significant Findings Laboratory Tests Test 01/07/17 06:26 01/07/17 06:36 01/08/17 10:37 Blood Urea Nitrogen 5 MG/DL (7-18) White Blood Count 13.2 TH/MM3 (4.0-11.0) 25.5 TH/MM3 (4.0-11.0) Red Blood Count 5.56 MIL/MM3 (4.00-5.30) Mean Corpuscular Volume 71.5 FL (80.0-100.0) 71.3 FL (80.0-100.0) Mean Corpuscular Hemoglobin 22.8 PG (27.0-34.0) 23.8 PG (27.0-34.0) Mean Corpuscular Hemoglobin Concent 31.8 % (32.0-36.0) Neutrophils (%) (Auto) 90.9 % (16.0-70.0) Lymphocytes (%) (Auto) 7.7 % (9.0-44.0) Neutrophils # (Auto) 12.0 TH/MM3 (1.8-7.7) Neutrophils % (Manual) 95 % (16-70) Lymphocytes % 2 % (9-44) Neutrophils # (Manual) 24.7 TH/MM3 (1.8-7.7) Imaging Last Impressions Neck CT 01/06/17 0000 Signed Impressions: Service Date/Time: Friday, January 06, 2017 15:43 - CONCLUSION: 1. Extensive soft tissue swelling involving the tonsillar pillar along the left side of the oropharynx with extension down into the glossotonsillar sulcus on the left. There is central low attenuation measuring at least 2.5 x 1.8 cm. The findings are concerning for a sizable tonsillar abscess on the left. Meir Mills MD PE at Discharge GENERAL: This is a well-nourished, well-developed patient, in no apparent distress. ENT: Nose without bleeding, or drainage, Airway patent. Positive exudate seen on the right tonsil, positive tender lymph node submandibular more on the left NECK: Trachea midline. Supple CARDIOVASCULAR: Regular rate and rhythm without murmurs, gallops, or rubs. RESPIRATORY: Clear to auscultation bilaterally. GASTROINTESTINAL: Abdomen soft, non-tender, nondistended. Positive bowel sounds MUSCULOSKELETAL: Extremities without clubbing, cyanosis, or edema. Pedal pulses appreciated NEUROLOGICAL: Awake and alert. Moves all extremity. Normal speech.no focal neurological deficit Pt update on day of discharge Follow-up for peritonsillar abscess Patient maintains afebrile. She had no complaints. Deny any shortness of breathing or difficulty swallowing. She also denies any chest pain, shortness of breathing, palpitation, lightheadedness or dizziness. On telemetry patient has bradycardia but is asymptomatic. Hospital Course 21 years old female came with Peritonsillar extensive abscess -Patient was symptomatic which led to CT scan. Found on CT scan. -Patient was treated empirically was Unasyn and Decadron IV. ENT consulted. Since patient was improving with antibiotics and steroids per ENT continue with medical management. -On the day of discharge she was switched to Augmentin and measured Dosepak for 2 weeks. Questionable arrhythmia -Educational Technology Coordinator consulted. Reviewed strip. Unlikely a flutter. -Recommend 24-hour Holter monitor and 2-D echo. 2-D echo reviewed and not impressive. Hyperchromic microcytosis with normal hemoglobin -? Underlying thalassemia. -This can be follow-up as outpatient. Pt Condition on Discharge: Good Discharge Disposition: Discharge Home Discharge Time: <= 30 minutes Discharge Instructions DIET: Follow Instructions for: As Tolerated, No Restrictions Activities you can perform: Weight Bearing as Letty Follow up Referrals: Appointment for Follow Up - 3-5 Days with Jared Rodas MD PCP Follow-up - 1 Week New Medications: Amoxicillin-Clavulanate (Augmentin) 875-125 Mg Tab 1 TAB PO BID for Infection for 14 Days, #28 TAB 0 Refills Methylprednisolone Dosepak (Medrol Dosepak) 4 Mg Dspk 4 MG PO DIRECTED, #1 DSPK 0 Refills Per Pharmacist direction Neeru Grier MD Jan 09, 2017 15:34
--- NOTE | 2017-01-09 15:34 | HHI.DCPOC ---
Discharge Care Plan Diagnosis: (1) Peritonsillar abscess Goals to Promote Your Health * To prevent worsening of your condition and complications * To maintain your health at the optimal level Directions to Meet Your Goals Take your medications as prescribed Follow your dietary instruction Follow activity as directed Keep your appointments as scheduled Take your immunizations and boosters as scheduled If your symptoms worsen call your PCP, if no PCP go to Urgent Care Center or Emergency Room Smoking is Dangerous to Your Health. Avoid second hand smoke Call the 24-hour hour crisis hotline for domestic abuse at Neeru Grier MD Jan 09, 2017 15:34
[2017-01-09 16:00] VITALS: BP 130/72; PULSE 58; RESP 19; TEMP 97.9; O2SAT 97
--- NOTE | 2017-01-11 15:47 | HM ---
Date Performed: 01/09/2017 Time Performed: 16:47:00 HOOKUP DATE: 01/09/17 04:47:00 PM Mon ANALYSIS START TIME: 01/09/2017 4:52:00 PM ANALYSIS END TIME: 01/10/2017 1:13:00 PM PATIENT AGE: 21 PATIENT HEIGHT PATIENT WEIGHT DRUG LIST PATIENT DIAGNOSIS TEST NARRATIVE: The patient's average heart rate was 62 BPM. Heart rates greater than 120 B PM were noted 3% of the time. Heart rates less than 50 BPM were noted 58% of the time. No pauses exceeding 2.0 seconds were noted. 6 ventricular ectopics, which represented < 1% of the total be at count, were noted. The highest ventricular ectopic frequency occurred from 01:00 AM to 02:00 AM T ue. During this time 3 VE(s) occurred. Ventricular ectopics were observed as 6 isolated beat(s) onl y. No couplets or runs were noted. No supraventricular ectopics were noted. No episodes of S T depression (defined as -1.0 mm or more) were noted in channel 1. No episodes of ST depression (def ined as -1.0 mm or more) were noted in channel 2. No episodes of ST depression (defined as -1.0 mm o r more) were noted in channel 3. TEST INTERPRETATION: Sinus rhythm Sinus tachycardia Sinus bradycardia Rare PVCs Signed by : Esther Rodríguez
== END 2017-01-09 18:00 | disposition home or self-care (01) | DRG 153 ==
LOC: NEPC 14:28 → NEDA 16:34 → N07B 17:47
PROVIDERS: ADMIT Family Medicine; ATTEND Family Medicine
DX: J36 Peritonsillar abscess (principal); I48.92 Unspecified atrial flutter; R13.10 Dysphagia, unspecified; E11.9 Type 2 diabetes mellitus without complications; D56.9 Thalassemia, unspecified
CPT/HCPCS: 70491; 80048; 85007; 85025; 85027; 93005; 93225; 93226; 93306; 96361; 96365; 96375; J0295; J1100; J7030; Q9967